=== PATIENT | male | born 1955 | race Caucasian/White ===

== ENCOUNTER 2016-06-11 07:32 | Outpatient (CLI) | payer OTHER ==
[2013-12-13 09:09] VITALS: BP 120/71
[2016-06-11 09:29] LABS: eGFR (African) > 60; eGFR (Non-African) > 60
== END 2016-06-11 07:33 ==
LOC: LAB 07:32
PROVIDERS: ATTEND Family Medicine
DX: E11.9 Type 2 diabetes mellitus without complications (principal); I10 Essential (primary) hypertension
CPT/HCPCS: 36415; 80053; 80061; 83036

== ENCOUNTER 2016-08-14 08:52 | Outpatient (CLI) | payer OTHER ==
[2013-12-13 09:09] VITALS: BP 120/71
--- NOTE | 2016-08-14 15:47 | Diagnostic Imaging Report ---
PRASANTH CHUN [facility] [address] [facility].[address] [id number] Report Submission Date: Aug 14, 2016 12:59:15 PM CDT Patient Study Name: SANDY NGUYỄN Date: Aug 14, 2016 9:05:24 AM CDT Modality Type: CR Gender: M Description: SPINE : 55 Institution: [facility] Physician: PRASANTH CHUN Examination: Plain film lumbar spine History: Back discomfort Findings: 3 views of the lumbar spine demonstrate normal height. No anterior compression. Anterior/lateral osteophyte formation. Disc space narrowing L3/L4 through L5/S1. Facet degenerative changes. Atherosclerotic disease involving the aortoiliac vessels. Impression: Degenerative changes without compression deformity. Electronically signed on Aug 14, 2016 12:59:15 PM CDT by: Dennis GARCIA
== END 2016-08-14 09:00 ==
LOC: RAD 08:52
PROVIDERS: ATTEND Family Medicine
DX: M54.5 Low back pain (principal)
CPT/HCPCS: 72100

== ENCOUNTER 2016-09-01 08:16 | Outpatient (CLI) | payer OTHER ==
[2013-12-13 09:09] VITALS: BP 120/71
== END 2016-09-01 08:17 ==
LOC: RAD 08:16
PROVIDERS: ATTEND Family Medicine
DX: Z53.9 Procedure and treatment not carried out, unspecified reason (principal)